=== PATIENT | male | born 1950 | race Caucasian/White ===

== ENCOUNTER → 2016-08-23 | Outpatient (CLI) | payer MEDICARE, OTHER | LOC: CT 08-10 10:30 | DX: D41.00 Neoplasm of uncertain behavior of unspecified kidney (principal); N28.1 Cyst of kidney, acquired; N28.89 Other specified disorders of kidney and ureter; E27.8 Other specified disorders of adrenal gland | CPT/HCPCS: 36415; 82565; 84520; J7050; Q9962 ==

== ENCOUNTER → 2021-12-17 | Outpatient (CLI) | payer MEDICARE, OTHER ==
[~2021-12-17] MED LIST: ASPIR 8181 MG PO; CYANOCOBAL1000 MCG/1 INJ; LEVOTHYROXINE25 MCG PO; LIPITOR TAB 1010 MG PO; LOPRESSOR 25 MG25 MG PO; MAGOX 400400 MG PO; MORPHINE PUMP; PHENERGAN 12.12.5 M1 PO; PROTONIX40 MG PO; RANEXA500 MG PO; SYMPROIC PO; VITAMIN D35000 UNI1 PO; ZOFRAN4 MG PO
== END ==
LOC: KOH-I 14:32
DX: S99.929A Unspecified injury of unspecified foot, initial encounter (principal); M79.89 Other specified soft tissue disorders
CPT/HCPCS: 73630

== ENCOUNTER → 2021-12-22 | Outpatient (CLI) | payer MEDICARE, OTHER | LOC: KOH-I 14:30 | DX: S92.902A Unspecified fracture of left foot, initial encounter for closed fracture (principal); S88.92 Partial traumatic amputation of lower leg, level unspecified; S92.322A Displaced fracture of second metatarsal bone, left foot, initial encounter for closed fracture; S92.352A Displaced fracture of fifth metatarsal bone, left foot, initial encounter for closed fracture; S92.335A Nondisplaced fracture of third metatarsal bone, left foot, initial encounter for closed fracture; S92.345A Nondisplaced fracture of fourth metatarsal bone, left foot, initial encounter for closed fracture; S92.215A Nondisplaced fracture of cuboid bone of left foot, initial encounter for closed fracture; S92.412A Displaced fracture of proximal phalanx of left great toe, initial encounter for closed fracture | CPT/HCPCS: 73718 ==